=== PATIENT | female | born 1965 | race Caucasian/White ===

== ENCOUNTER → 2020-11-10 | Outpatient (CLI) | payer BC ==
[~2020-11-10] MED LIST: NEURONTIN300 MG PO; PAXIL20 MG PO; PRINIVIL5 MG PO
== END ==
LOC: MAMO 11-07 15:30
DX: Z12.31 Encounter for screening mammogram for malignant neoplasm of breast (principal)
CPT/HCPCS: 77063; 77067

== ENCOUNTER → 2022-02-22 | Outpatient (CLI) | payer BC | LOC: MAMO 01-25 14:00 | DX: Z12.31 Encounter for screening mammogram for malignant neoplasm of breast (principal) | CPT/HCPCS: 77063; 77067 ==

== ENCOUNTER → 2022-05-13 | Outpatient (CLI) | payer BC ==
[2022-05-13 10:59] LABS: RED BLOOD COUNT 4.88 M/UL (4.00-5.10); WHITE BLOOD COUNT 6.3 K/UL (4.5-11.0)
[2022-05-13 12:20] LABS: BUN/CREATININE RATIO 17 (0-10)
[2022-05-14 08:19] LABS: VITAMIN D, 25-HYDROXY 22.2 ng/mL (30.0-100.0)
== END ==
LOC: LAB 10:09
PROVIDERS: Nurse Practitioner
DX: E78.5 Hyperlipidemia, unspecified (principal); I10 Essential (primary) hypertension; R73.9 Hyperglycemia, unspecified; E03.9 Hypothyroidism, unspecified; E55.9 Vitamin D deficiency, unspecified; E53.9 Vitamin B deficiency, unspecified
CPT/HCPCS: 36415; 80053; 80061; 82607; 83036; 84439; 84443; 84481; 85025